=== PATIENT | male | born 1975 | race Caucasian/White ===

== ENCOUNTER → 2017-06-06 | Outpatient (CLI) | payer BC ==
--- NOTE | 2017-06-07 08:30 | MRI ---
MRI SPINE CERVICAL WITHOUT CONTRAST CLINICAL HISTORY: 41-year-old male with neck pain and bilateral radicular symptoms. COMPARISON: None. Technique: Multiplanar, multisequence MRI images of the cervical spine were obtained without the adm inistration of intravenous contrast. FINDINGS: Straightening of the cervical lordosis as imaged. Alignment is maintained. The craniocervic al junction is normal. Vertebral body and disc space height are maintained. Vertebral marrow and inte rvertebral disc space signal are normal. Cord signal is normal. The visualized posterior fossa stru ctures are normal. C2-C3: No central canal or neural foraminal stenosis. C3-C4: Bilateral uncovertebral and facet joint hypertrophy produce mild right neural foraminal stenos is without central canal stenosis. C4-C5: No central canal or neural foraminal stenosis. C5-C6: Central disk osteophyte narrows canal to 10.9 mm without cord impingement or signal change. No neural foraminal stenosis. C6-C7: Large asymmetric disc osteophyte complex with a left central/foraminal component that effaces the ventral subarachnoid spaces with flattening of the left central cord along the ventral aspect in producing severe left-sided neural foraminal stenosis. Central canal measures 9.9 mm without cord sig nal change. C7-T1: Uncovertebral facet joint hypertrophy without central canal or neural foraminal stenosis. Paraspinous soft tissues are unremarkable. IMPRESSION: 1. Mild multilevel degenerative change with significant asymmetric disc osteophyte complex at C6-C7 w ith flattening of the left ventral cord and severe left neural foraminal stenosis. 2. See level by level descriptions above. Reported By:
== END | disposition home or self-care (01) | DRG 74 ==
LOC: RAD 17:13
PROVIDERS: ATTEND Chiropractor
DX: M54.12 Radiculopathy, cervical region (principal); M50.323 Other cervical disc degeneration at C6-C7 level; M25.78 Osteophyte, vertebrae
CPT/HCPCS: 72141